=== PATIENT | female | born 1975 | race Caucasian/White ===

== ENCOUNTER 2022-08-01 11:47 | Emergency (ER) | payer OTHER, SELFPAY ==
[2022-08-01 11:56] VITALS: BP 109/73; PULSE 83; RESP 18; TEMP 37; O2SAT 99
--- NOTE | 2022-08-01 12:27 | ED.URI ---
HPI - URI/Sore Throat General Chief Complaint: Upper Respiratory Infection Stated Complaint: Sore Throat/Headache Time Seen by Provider: 08/01/22 12:27 History of Present Illness HPI Narrative: 47-year-old female presented for complaint of sore throat, cough, sinus congestion and drainage, for about 4 days. She is taking ibuprofen for symptoms. Endorses sick contacts, stating her daughter has similar symptoms. She denies shortness breath, wheezing, nausea vomiting diarrhea, fevers or chills. Related Data Home Medications Medication Instructions Recorded Confirmed No Home Medications 08/01/22 08/01/22 Allergies Allergy/AdvReac Type Severity Reaction Status Date / Time No Known Allergies Allergy Verified 08/01/22 12:01 Review of Systems Review of Systems: CONSTITUTIONAL: Denies body aches, fever, chills, or sweats. EYES: Denies visual changes, redness, or discharge. ENT: Reports rhinorrhea, congestion, sore throat CARDIOVASCULAR: Denies chest pain, palpitations, or edema. RESPIRATORY: Denies dyspnea. GASTROINTESTINAL: Denies abdominal pain, nausea, vomiting, or diarrhea. SKIN: Denies rash, itching, or wounds. MUSCULOSKELETAL: Denies back pain, joint pain, or myalgia. NEUROLOGIC: Denies headache [facility] Past Medical History Medical History (Updated 08/01/22 @ 12:34 by Tram Casillas, [employer]) No pertinent past medical history Exam Narrative: GENERAL: well-appearing, no acute distress. EYES: conjunctivae clear ENT: Mucous membranes moist. TM pearly guerrero with normal light reflex bilaterally; no tragal tenderness. Oropharynx mildly erythematous without lesions. Tonsils enlarged 1+ without exudate. No drooling, no hoarseness, no trismus, uvula midline. No tripod positioning, hot potato voice, or soft palate swelling. NECK: Supple. No lymphadenopathy CHEST: Clear to auscultation, breath sounds equal. No respiratory distress, speaks in full sentences. HEART: Regular rate and rhythm. No murmur heard. SKIN: Warm, dry, no rash. NEURO: Alert and oriented x3. Course Course Emergency Course: Patient is aware of diagnosis, understands and agrees to treatment plan. Anticipatory guidance given. Patient agrees to follow-up as directed and is aware of reasons to seek care at the emergency department. Portions of this record may have been created with voice recognition software Level of Care: Express Care Visit Vital Signs Vital signs: Vital Signs Temperature 98.6 F 08/01/22 11:56 Pulse Rate 83 08/01/22 11:56 Respiratory Rate 18 08/01/22 11:56 Blood Pressure 109/73 08/01/22 11:56 Pulse Oximetry 99 08/01/22 11:56 Oxygen Delivery Room Air 08/01/22 11:56 Temperature 98.6 F 08/01/22 11:56 Pulse Rate 83 08/01/22 11:56 Respiratory Rate 18 08/01/22 11:56 Blood Pressure 109/73 08/01/22 11:56 Pulse Oximetry 99 08/01/22 11:56 Oxygen Delivery Room Air 08/01/22 11:56 MDM - URI/Sore Throat MDM Narrative Medical decision making narrative: strep result reviewed with pt. Advise supportive treatments. Patient is appropriate for outpatient treatment and follow-up. Differential Diagnosis Differential diagnosis: Likely upper respiratory infection, viral infection and pharyngitis Lab Data Labs: Strep Screen Presumptive Negative *(Reference Range: Negative)* Discharge Plan Discharge Clinical Impression: Pharyngitis Patient Disposition: Home, Self-Care Condition: Stable Instructions: Pharyngitis (ED) Additional Instructions: Rapid strep swab was negative today You will be notified in a few days if the culture comes back positive for strep, and appropriate antibiotics will be called in at that time. if symptoms are due to a viral illness, it is not treated with antibiotics. Viral symptoms can be present for up to 10-14 days. Recommend Flonase spray and Zyrtec for sinus congestion Cough
== END 2022-08-01 12:35 | disposition home or self-care (01) ==
PROVIDERS: Emergency Provider Nurse Practitioner Family; PCP Emergency Medicine
DX: J02.9 Acute pharyngitis, unspecified (principal)
CPT/HCPCS: 87081; 87880; 99213; G0463